=== PATIENT | female | born 1990 | race Caucasian/White ===

== ENCOUNTER 2020-02-17 19:58 | Emergency (ER) | payer OTHER ==
[~2020-02-17] VITALS: Ht 162.6 cm; Wt 104.5 kg
[2020-02-17 20:08] VITALS: BP 114/69; PULSE 88; TEMP 97.7
[2020-02-17 20:31] LABS: COLLECTION METHOD CLEAN CATCH
[2020-02-17 20:41] LABS: MUCOUS Present /lpf; PH 6 (5-8); URINE APPEARANCE Hazy; URINE BACTERIA Moderate /hpf; URINE BILIRUBIN Negative (NEGATIVE); URINE BLOOD 1+ (NEGATIVE); URINE COLOR Yellow; URINE GLUCOSE Negative (NEGATIVE); URINE KETONE Negative (NEGATIVE); URINE LEUKOCYTE ESTERASE 3+ (NEGATIVE); URINE NITRATE Negative (NEGATIVE); URINE PROTEIN(semi-quant) Negative (NEGATIVE); URINE UROBILINOGEN Negative (NEGATIVE)
[2020-02-17] MEDS ORDERED: MACROBID 1100 MG/CAP PO (20:49)
== END 2020-02-17 21:00 | disposition home or self-care (01) ==
LOC: COL.ER 19:58
PROVIDERS: Nurse Practitioner Primary Care
DX: N39.0 Urinary tract infection, site not specified (principal); Z32.02 Encounter for pregnancy test, result negative; Z88.0 Allergy status to penicillin

== ENCOUNTER 2020-04-04 22:23 | Emergency (ER) | payer OTHER ==
[~2020-04-04] VITALS: Ht 162.6 cm; Wt 106.8 kg
[~2020-04-04 22:23] MED LIST: MACROBID 1100 MG/CAP PO
[2020-04-04 22:58] VITALS: BP 127/85; TEMP 97.8
[2020-04-04] MEDS ORDERED: CLEOCIN HCL300 MG PO (23:17)
[2020-04-04 23:32] VITALS: PULSE 78
== END 2020-04-04 23:30 | disposition home or self-care (01) ==
LOC: COL.ER 22:23
DX: K04.7 Periapical abscess without sinus (principal); Z88.0 Allergy status to penicillin
CPT/HCPCS: J1885